=== PATIENT | female | born 1960 | race Caucasian/White ===

== ENCOUNTER 2016-10-30 04:31 | Inpatient (IN) ==
[2016-10-23 08:44] LABS: MANUAL DIFF NEEDED? NO; URINE SOURCE CLEAN CATCH
[2016-10-23 08:59] LABS: BILIRUBIN URINE NEGATIVE (NEGATIVE); BLOOD URINE NEGATIVE (NEGATIVE); COLOR YELLOW; GLUCOSE URINE NEGATIVE (NEGATIVE); LEUKOCYTES URINE MODERATE (NEGATIVE); NITRITE URINE NEGATIVE (NEGATIVE); PH URINE 5.5; PROTEIN URINE NEGATIVE (NEGATIVE); SP GRAVITY URINE 1.024; TURBIDITY URINE CLEAR (CLEAR); URINE MICRO REVIEW NEEDED? YES; UROBILINOGEN URINE NORMAL (NORMAL)
[2016-10-23 09:00] LABS: BASO% 0.4 % (0.0-0.8); EOS# 0.12 X1000 (0.0-0.7); EOS% 2.5 % (0.0-10.0); HEMATOCRIT 38.6 % (37.0-47.0); HEMOGLOBIN 12.9 g/dL (12.0-16.0); LYMPH# 1.79 X1000 (1.2-3.4); LYMPH% 37.2 % (20.5-51.1); MCH 28.1 PG (27-31); MCHC 33.4 g/dL (33-37); MCV 84.1 FL (81-99); MONO# 0.41 X1000 (0.11-0.59); MONO% 8.5 % (1.7-9.3); MPV 12.4 FL (7.4-10.4); NEUT% 51.4 % (42.2-75.2); PLT 189 X1000 (130-400); RBC 4.59 XMIL (4.2-5.4)
[2016-10-23 09:04] LABS: INR 1.01; PROTIME 10.6 Seconds (9.2-11.7); PTT 26.9 Seconds (22.0-36.0)
[2016-10-23 09:13] LABS: UR EPITHELIAL CELLS <10 /HPF (<10); URINE BACTERIA NEGATIVE /HPF; URINE RBC <10 /HPF (<10); URINE WBC <10 /HPF (<10)
[2016-10-23 09:21] LABS: AGAP 10; BUN 11 mg/dL (8-22); CALCIUM 9.2 mg/dL (8.8-10.2); CHLORIDE 104 mmol/L (98-107); COSMO 280; POTASSIUM 4.4 mmol/L (3.5-5.1); SODIUM 141 mmol/L (136-145); TCO2 27 mmol/L (25-35); URINE CASTS NONE SEEN; URINE CRYSTALS CA OXALATE PRESENT; URINE SMALL ROUND CELLS NONE SEEN
--- NOTE | 2016-10-23 11:49 | EKG Report ---
Test Performed on : 10/23/2016 08:14:50 AM Test Reason : MD ORDER Blood Pressure : / mmHG Vent. Rate : 066 BPM Atrial Rate : 066 BPM P-R Int : 122 ms QRS Dur : 098 ms QT Int : 442 ms P-R-T Axes : 072 083 074 degrees QTc Int : 463 ms Normal sinus rhythm. Normal ECG When compared with ECG of 17-AUG-2015 19:44, premature atrial complexes. are no longer present Confirmed by Jesus MENON, Azar Portillo ([id number]) on 10/23/2016 2:56:21 PM
[2016-10-30] MEDS ORDERED: PEPCID ONE (05:39)
[2016-10-30] MEDS ORDERED: COLACE ONE (05:39)
[2016-10-30] MEDS ORDERED: KEFZOL 2 GM/D5W 2 GM/50 ML IVPB ONE (05:40)
[2016-10-30] MEDS ORDERED: CELEBREX ONE (05:40)
[2016-10-30] MEDS ORDERED: LYRICA ONE (05:40)
[2016-10-30] MEDS ORDERED: REGLAN ONE (05:40)
[2016-10-30] MEDS ORDERED: LR 1,000 ML ONE (05:40)
[2016-10-30] MEDS ORDERED: EPHEDRINE ONE (06:22)
[2016-10-30] MEDS ORDERED: SODIUM CHLORIDE 0.9% 10 ML ONE (06:22)
[2016-10-30] MEDS ORDERED: DIPRIVAN 1% 500 MG/50 ML BOTTLE ONE (06:27)
[2016-10-30] MEDS ORDERED: DURAMORPH ONE (06:50)
[2016-10-30] MEDS ORDERED: TORADOL ONE (06:50)
[2016-10-30] MEDS ORDERED: MARCAINE 0.25% PF/EPI 1:200,000 ONE (06:50)
[2016-10-30] MEDS ORDERED: VANCOMYCIN ONE (06:50)
[2016-10-30] MEDS ORDERED: SODIUM CHLORIDE 0.9% ONE (06:51)
[2016-10-30] MEDS ORDERED: CYKLOKAPRON 1,000 MG/NS 1,000 MG/100 ML IVPB ONE ×2 (06:51→06:55)
[2016-10-30] MEDS ORDERED: NEOSPORIN G.U. IRRIGANT ONE (07:00)
[2016-10-30] MEDS ORDERED: EXPAREL 1.3% ONE (07:00)
[2016-10-30] MEDS ORDERED: VERSED ONE (07:07)
[2016-10-30] MEDS ORDERED: FENTANYL ONE (07:08)
[2016-10-30] MEDS ORDERED: XYLOCAINE-MPF 2% ONE (07:09)
[2016-10-30] MEDS ORDERED: OFIRMEV 1000 MG/ISOTONIC SOLN 1,000 MG/100 ML BOTTLE ONE (07:42)
[2016-10-30] MEDS ORDERED: DECADRON ONE (07:44)
[2016-10-30] MEDS ORDERED: ZOFRAN ONE (07:55)
[2016-10-30] MEDS ORDERED: ROBINUL ONE (07:56)
[2016-10-30 08:19] LABS: URINE MICRO REVIEW NEEDED? NO; URINE SOURCE CATH
[2016-10-30 08:24] LABS: BILIRUBIN URINE NEGATIVE (NEGATIVE); BLOOD URINE NEGATIVE (NEGATIVE); COLOR YELLOW; GLUCOSE URINE NEGATIVE (NEGATIVE); LEUKOCYTES URINE NEGATIVE (NEGATIVE); NITRITE URINE NEGATIVE (NEGATIVE); PH URINE 6.5; PROTEIN URINE NEGATIVE (NEGATIVE); SP GRAVITY URINE 1.026; TURBIDITY URINE CLEAR (CLEAR); UROBILINOGEN URINE NORMAL (NORMAL)
[2016-10-30 08:25] LABS: UR EPITHELIAL CELLS <10 /HPF (<10); URINE BACTERIA NEGATIVE /HPF; URINE RBC <10 /HPF (<10); URINE WBC <10 /HPF (<10)
[2016-10-30] MEDS ORDERED: NS 1,000 ML ONE (08:54)
[2016-10-30] MEDS ORDERED: MORPHINE IV PRN (09:00)
[2016-10-30] MEDS ORDERED: MILK OF MAGNESIA PO PRN (09:00)
[2016-10-30] MEDS ORDERED: ZOFRAN PO PRN (09:00)
[2016-10-30] MEDS ORDERED: PEPCID PO SCH (09:00)
--- NOTE | 2016-10-30 09:24 | OPERATIVE NOTE ---
PROCEDURE DATE: 10/30/2016 PREOPERATIVE DIAGNOSIS: Degenerative osteoarthritis of the left knee. POSTOPERATIVE DIAGNOSIS: Degenerative osteoarthritis of the left knee. PROCEDURE PERFORMED: Left total knee arthroplasty with DePuy Attune size 6 narrow posterior stabilized femur, a size 5 rotating platform tibial tray, and a 10 mm rotating platform tibial insert, and a 35 mm medialized anatomic patella. SURGEON: Nicanor Hammond MD. ASSISTANTS: DAYTON Mclaughlin, and DAYTON Andino. ANESTHESIA: Spinal. IV FLUIDS: 2300 mL lactated Ringer's. ESTIMATED BLOOD LOSS: 25 mL. TOURNIQUET TIME: 85 minutes at 350 mmHg. COMPLICATIONS: None. INDICATIONS: The patient is a pleasant, 56-year-old female who has a chronic history of pain and discomfort over the left knee. Continued pain and discomfort despite appropriate nonoperative treatment. X-rays revealed degenerative osteoarthritis. Recommendation to proceed with left total knee arthroplasty was offered. Risks and benefits of surgery were explained including risks of anesthesia, , bleeding, infection, failure to relieve pain, postop stiffness, nerve injury, blood clots, and other imponderables. All questions were answered. The patient and family wished to proceed with surgery. DETAILS OF THE OPERATION: The patient was taken to the operating room and placed supine on the operating table. Once adequate anesthesia was obtained, the left lower extremity was subsequently prepped and draped in the usual sterile fashion. An Esmarch was used to exsanguinate the left lower extremity. The tourniquet was inflated to 350 mmHg. A standard anterior incision was made with a skin knife. Medial and lateral skin envelopes were developed. Standard medial parapatellar arthrotomy was then performed. Patella fat pad was excised. Retractors were then placed. Approximately 1 cm anterior to the PCL insertion, a starting reamer was passed. Intramedullary guide with a distal femoral cutting block was pinned in position. The distal femoral cut was then performed in a standard fashion. A sizing block was placed and measured size 6, and corresponding pins were placed. A size 6 cutting block was placed in position. Anterior, posterior, and chamfer cuts were then made. Attention was turned to the proximal tibia where further resection of the ACL and PCL was performed. Using the extramedullary guide, the proximal tibia cutting block was pinned in position. Proximal tibia was then resected. Medial and lateral meniscus was excised. A spacer block was placed and had good soft tissue balance in both flexion and extension. The attention was turned back to the proximal tibia where a size 5 tray appeared to be the correct size. Corresponding pins were placed. The tibial baseplate was pinned in position. This was followed by a central reamer and a fin punch. A box cutting guide was then placed on the distal femur. The box cut was performed. A trial femoral stem was then placed as well as a trial tibial insert, and had good soft tissue balancing. Patella was everted and resected in a standard fashion. A 35 appeared to be the correct size. Corresponding holes were drilled. A size 35 mm trial patella component was then placed and had good patellofemoral tracking. Trial components were then removed. Copious irrigation was then performed with antibiotic pulsatile lavage while vancomycin was mixed with cement on the back table. Sequential cementing was then performed, first with the tibial tray and excess cement was removed with a [place], followed by the femoral component and excess cement was removed with a [place]. The trial tibial insert was placed in full extension and axial loading was maintained while cement cured. While cement was curing, Exparel was placed in the deep soft tissue as well as subcutaneous tissue. After the cement had cured, trial tibial insert 10 mm had excellent stability and range of motion. While exchanging the trial insert, Exparel was placed in the deep soft tissue and deep posterior capsule. The wound was copiously irrigated once again with antibiotic pulsatile lavage. A 10 mm rotating platform tibial insert was then placed. It had good range of motion, good soft tissue balance,and good patellofemoral tracking. A 1/8 Hemovac drain was placed and it was not sewn in. Number 1 Vicryl was used to repair the arthrotomy, followed by 2-0 Vicryl to repair the subcutaneous tissue, and skin el. Sterile 4 x 4s, ABD pad, Webril, cryo unit, and Tray wrap were applied to the left lower extremity. Patient tolerated the procedure well with no complications and was transferred to the recovery room in stable condition. cc: Nicanor Hammond MD
--- NOTE | 2016-10-30 10:46 | Diag Imaging Result Doc PS360 ---
EXAM: KNEE 1-2 VIEWS-LEFT HISTORY: s/p left total knee TECHNIQUE: Portable two views COMPARISON: None. FINDINGS: There has been recent orthopedic replacement of the knee. There are anterior skin el and there is a superior surgical drain. No fracture. No dislocation. IMPRESSION: Good alignment of the femoral and tibial components following orthopedic replacement of the knee. Electronically signed by Matias Austin 10/30/2016 10:44 AM
[2016-10-30] MEDS: COLACE PO SCH ×2 (13:08→22:30)
[2016-10-30] MEDS: TYLENOL PO SCH ×2 (13:08→18:46)
[2016-10-30] MEDS: NS 1,000 ML IV SCH (13:09)
[2016-10-30] MEDS ORDERED: KEFZOL 1 GM/D5W 1 GM/50 ML IVPB IV SCH (15:00)
[2016-10-30] MEDS ORDERED: PERIDEX MT SCH (21:00)
[2016-10-30] MEDS: OXY IR PO PRN (22:25)
[2016-10-30] MEDS ORDERED: KEFZOL 2 GM/D5W 2 GM/50 ML IVPB IV ONE (23:00)
[2016-10-31] MEDS: TYLENOL PO SCH ×2 (01:30→06:48)
[2016-10-31] MEDS: NS 1,000 ML IV SCH (01:30)
[2016-10-31] MEDS: OXY IR PO PRN (01:35)
[2016-10-31] MEDS ORDERED: XARELTO PO SCH (06:00)
[2016-10-31 06:22] LABS: HEMOGLOBIN 9.9 g/dL (12.0-16.0)
[2016-10-31 06:46] LABS: AGAP 10; BUN 13 mg/dL (8-22); CALCIUM 8.6 mg/dL (8.8-10.2); CHLORIDE 108 mmol/L (98-107); COSMO 280; POTASSIUM 4.4 mmol/L (3.5-5.1); SODIUM 140 mmol/L (136-145); TCO2 22 mmol/L (25-35)
--- NOTE | 2016-10-31 07:45 | PROGRESS NOTE ---
DATE: 10/31/2016 SUBJECTIVE: The patient is a pleasant, 56-year-old female, who is 1 day status post left total knee arthroplasty. The patient rested well through the night and has no complaints this morning. PHYSICAL EXAMINATION: On physical examination of the left lower extremity, her dressing is intact. Calf is soft. She is neurovascularly distally. Active dorsiflexion and plantar flexion. Laboratory is pending. IMPRESSION: Postop day #1 status post left total knee arthroplasty. PLAN: At this point, I discussed treatment options with the patient. At this time, we will discontinue her drain and Brasher. We will also Hep-Lock her IV and change her dressing. We will mobilize with physical therapy. Patient was able to ambulate yesterday afternoon, and we will monitor her progress and anticipate discharging home after physical therapy. The patient will proceed with outpatient physical therapy. All of her questions were answered. cc: Nicanor Hammond MD
[2016-10-31 08:44] VITALS: BP 114/50
== END 2016-10-31 14:23 | disposition home or self-care (01) ==
LOC: SURHOLD 04:31 → 4N 07:45
PROVIDERS: ADMIT Orthopaedic Surgery Adult Reconstructive Orthopaedic Surgery; ATTEND Orthopaedic Surgery Adult Reconstructive Orthopaedic Surgery